=== PATIENT | female | born 1970 | race Hispanic/Latino ===

== ENCOUNTER 2017-09-18 09:13 | Emergency (ER) | payer BC ==
[2017-09-18] MEDS ORDERED: DIAZEPAM 5 MG TABLET ONE (09:55)
[2017-09-18] MEDS ORDERED: ACETAMINOPHEN EXTRA STRENGTH 500 MG TABLET ONE (09:55)
== END 2017-09-18 11:09 | disposition home or self-care (01) ==
LOC: EDH 09:13
DX: M54.6 Pain in thoracic spine (principal); V59.09XA Driver of pick-up truck or van injured in collision with other motor vehicles in nontraffic accident, initial encounter; Y93.89 Activity, other specified; Y92.89 Other specified places as the place of occurrence of the external cause; Y99.8 Other external cause status